=== PATIENT | male | born 1955 | race Caucasian/White ===

== ENCOUNTER 2017-02-20 14:34 | Inpatient (IN) | payer OTHER ==
--- NOTE | 2017-02-20 15:57 | CPEKG ---
Heart Rate: 57 RR Interval: 1053 P-R Interval: 204 QRSD Interval: 98 QT Interval: 404 QTC Interval: 394 P Orange: 12 QRS Orange: -23 T Wave Orange: -3 EKG Severity - ABNORMAL ECG - EKG Impression: SINUS RHYTHM EKG Impression: PROBABLE LEFT VENTRICULAR HYPERTROPHY EKG Impression: BORDERLINE T ABNORMALITIES, INFERIOR LEADS Electronically Signed By: Dulce Ocampo 20-Feb-2017 21:23:31
--- NOTE | 2017-02-20 15:58 | EDPHY ---
HPI/HX/ROS/PE/MDM Narrative: CHIEF COMPLAINT: Dizziness HISTORY OF PRESENT ILLNESS: The patient is a 61-year-old male presenting with severe dizziness. The patient flew here 3 days ago from [place]. He went for a hike with his daughter two days ago and felt fine. The following morning he woke up with dizziness. He reports a "slow spinning" sensation that has remained constant. He intermittently has a "fast spinning" sensation with associated nausea and emesis x2. He spoke to his doctor from home who prescribed Meclizine and Zofran which improved his symptoms temporarily. This morning his symptoms continued with vague dizziness, and inability to walk. He felt off balance and thought he may fall. He additionally notes a tingling sensation to his face, bilaterally. His notes the patient seems lethargic, disoriented, and slow to speak. Patient and deny any dysarthria, word- finding difficulties, facial droop, numbness or tingling in arm or leg, or headache. He denies any falls. He does not use any anticoagulants. He denies fever, chills, chest pain, shortness of breath, or palpitations. Patient currently states he has no significant spinning sensation, just continues to feel "thickheaded" and off balance. REVIEW OF SYSTEMS: Aside from elements discussed in the HPI, a comprehensive 10-point review of systems was reviewed and is negative. PAST MEDICAL HISTORY: Hypertension. Arthritis. Patient takes aspirin as well as diclofenac SOCIAL HISTORY: . Lives in [place]. Occasional alcohol use. VITAL SIGNS: Reviewed by me GENERAL: Well-developed, well-nourished, resting comfortably in no respiratory distress. HEENT: Atraumatic. Eyes: No icterus, no injection. No nystagmus. PERRL, EOMI. Ears: Small amount of dried wax against TM on the left. Mouth: moist mucous membranes. No erythema or lesions. Neck: supple with no adenopathy. LUNGS: Clear to auscultation bilaterally, no wheezes, rhonchi or rales. CARDIAC: Regular rate and rhythm, no rubs, murmurs or gallops. ABDOMEN: Soft, nontender, nondistended, bowel sounds normal. BACK: No CVA tenderness. EXTREMITIES: No trauma. No edema. Range of motion is normal throughout. NEURO: Alert and oriented x3. No confusion noted during exam; answers questions appropriately, cranial nerves II through XII are intact. Motor strength 5 over 5 in all major muscle groups. Sensation intact to light touch. Normal finger to nose. Normal heel to dumont bilaterally. SKIN: Warm and dry, no rash. PSYCHIATRIC: Normal mentation, no agitation. Portions of this note were transcribed by a biomedical technician. I personally performed a history, physical exam, medical decision making, and confirmed accuracy of information the transcribed note. ED Course: Patient with history of hypertension presents with acute dizziness. Patient reports a spinning sensation. He tried taking Meclizine which improved his symptoms of severe dizziness/ spinning as well as vomiting. This morning symptoms persisted with feeling off balance, slight dizziness, "thick headed", and tingling sensation to his face bilaterally. IV was established. Plan for blood work, labs, and CT head. 12-LEAD EKG: Please see the full report in [facility]. My interpretation: Sinus rhythm, Borderline T abnormalities. Rate 57. Blood work is unremarkable. CT head is ordered. CT imaging was called to me by the radiologist, normal head CT. Subsequent left nasal mass found. I discussed this with the patient. He will followup with ENT when he returns home. 5:30 p.m.: Aft IV fluids, patient was reexamined. Upon sitting he complains of feeling woozy and when walking he reports feeling off balance. No fall. Patient required assistance with ambulation. No nystagmus. Plan to order CT Angio head and neck. Patient received a small amount of Ativan. CT Angio head and neck are normal. I spoke to Dr. Stoll, Neurology. We discussed MRI imaging in the emergency department. Dr. Stoll recommends admission to the hospital for symptomatic treatment with an examination in the morning and MRI studies with without contrast tomorrow. He will be seen by Neurology at that time. 8:00 p.m.: I spoke to the hospitalist, Dr. Cuenca, who accepts the patient for admission. Patient is comfortable with the plan. The understand that he will be seen by Neurology in the morning with further imaging studies as needed at that time. MDM: Differential diagnosis of the patient's dizziness was considered including but not limited to peripheral and central causes of vertigo, cardiac arrhythmias, cardiac ischemia, electrolyte disturbances, neurologic causes, cerebellar infarct, vertebral artery dissection, vertebral artery occlusion, orthostatic causes including dehydration, and blood loss. - Data Points Imaging Results: Imaging Impressions Head CT 02/20/17 17:01 Impression:1. Negative brain. Consider CT angiography and/or MRI of the brain. 2. Left nasopharynx mass. Results discussed with Dr. Ocampo. General information for patients regarding this examination can be found at [email or web address]. If you have questions or comments about this report, please contact me at [phone] (hospital) or [phone] (cell). Head CTA 02/20/17 17:42 Impression: Negative CT angiography of the neck with no arterial occlusive disease identified. CT Angiography of the Head With Attention to the [place] Reason for examination: Vertigo and altered mental status; evaluate for arterial occlusive disease. Follow-up nasopharyngeal mass. Technique: A spiral acquisition was performed from the base of the brain to the vertex during rapid intravenous administration of 90 mL of Isovue-370. This contrast volume was utilized for evaluation of the neck and head. Axial images are obtained at 0.6 mm thickness and the examination is reviewed on the workstation in multiple window and level settings. Sagittal and coronal reformats are performed and three-dimensional reformations are performed by the radiologist on the workstation. Dose reduction techniques were utilized. Findings: There is excellent arterial opacification. The great vessels at the base of the brain are normal in appearance. The anterior and middle cerebral arteries appear normal. Incidentally, there is a hypoplastic left A1 segment. Both anterior cerebrals fill from the right side. The [place] is intact with both anterior and posterior communicating arteries identified. The basilar artery as well as posterior cerebral arteries are normal. No regions of stenosis are identified. No hemorrhages are seen and no vascular malformations are identified. No areas of abnormal perfusion are identified and there are no findings to suggest cortical ischemia. Again noted is a tubular well-defined sausagelike mass in the left posterior nasopharynx extending into the upper portion of the oropharynx. This demonstrates minimal if any contrast enhancement. Impression: 1. Normal CT angiography of the head with attention to the great vessels of the [place]. 2. Nasopharyngeal mass previously described demonstrates minimal if any contrast enhancement. No associated osseous erosive changes are identified. Results called and discussed with Dulce Ocampo MD on 02/20/2017 at 18:38 Note: All stenoses are calculated using NASCET Criteria. Neck CTA 02/20/17 17:42 Impression: Negative CT angiography of the neck with no arterial occlusive disease identified. CT Angiography of the Head With Attention to the [place] Reason for examination: Vertigo and altered mental status; evaluate for arterial occlusive disease. Follow-up nasopharyngeal mass. Technique: A spiral acquisition was performed from the base of the brain to the vertex during rapid intravenous administration of 90 mL of Isovue-370. This contrast volume was utilized for evaluation of the neck and head. Axial images are obtained at 0.6 mm thickness and the examination is reviewed on the workstation in multiple window and level settings. Sagittal and coronal reformats are performed and three-dimensional reformations are performed by the radiologist on the workstation. Dose reduction techniques were utilized. Findings: There is excellent arterial opacification. The great vessels at the base of the brain are normal in appearance. The anterior and middle cerebral arteries appear normal. Incidentally, there is a hypoplastic left A1 segment. Both anterior cerebrals fill from the right side. The [place] is intact with both anterior and posterior communicating arteries identified. The basilar artery as well as posterior cerebral arteries are normal. No regions of stenosis are identified. No hemorrhages are seen and no vascular malformations are identified. No areas of abnormal perfusion are identified and there are no findings to suggest cortical ischemia. Again noted is a tubular well-defined sausagelike mass in the left posterior nasopharynx extending into the upper portion of the oropharynx. This demonstrates minimal if any contrast enhancement. Impression: 1. Normal CT angiography of the head with attention to the great vessels of the [place]. 2. Nasopharyngeal mass previously described demonstrates minimal if any contrast enhancement. No associated osseous erosive changes are identified. Results called and discussed with Dulce Ocampo MD on 02/20/2017 at 18:38 Note: All stenoses are calculated using NASCET Criteria. Imaging: Discussed imaging studies w/ planning advisor Radiologist Laboratory Results: Laboratory Results 02/20/17 16:20 02/20/17 16:20 02/20/17 02/20/17 16:20 16:20 WBC 5.11 10^3/uL 10^3/uL (3.80-9.50) RBC 4.02 10^6/uL L 10^6/uL (4.40-6.38) Hgb 12.3 g/dL L g/dL (13.7-17.5) Hct 36.6 % L % (40.0-51.0) MCV 91.0 fL fL (81.5-99.8) MCH 30.6 pg pg (27.9-34.1) MCHC 33.6 g/dL g/dL (32.4-36.7) RDW 13.0 % % (11.5-15.2) Plt Count 148 10^3/uL L 10^3/uL (150-400) MPV 11.7 fL fL (8.7-11.7) Neut % (Auto) 52.8 % % (39.3-74.2) Lymph % (Auto) 32.7 % % (15.0-45.0) [place] % (Auto) 9.2 % % (4.5-13.0) Eos % (Auto) 4.1 % % (0.6-7.6) Baso % (Auto) 0.8 % % (0.3-1.7) Nucleat RBC Rel Count 0.0 % % (0.0-0.2) Absolute Neuts (auto) 2.70 10^3/uL 10^3/uL (1.70-6.50) Absolute Lymphs (auto) 1.67 10^3/uL 10^3/uL (1.00-3.00) Absolute Monos (auto) 0.47 10^3/uL 10^3/uL (0.30-0.80) Absolute Eos (auto) 0.21 10^3/uL 10^3/uL (0.03-0.40) Absolute Basos (auto) 0.04 10^3/uL 10^3/uL (0.02-0.10) Absolute Nucleated RBC 0.00 10^3/uL 10^3/uL (0-0.01) Immature Gran % 0.4 % % (0.0-1.1) Immature Gran # 0.02 10^3/uL 10^3/uL (0.00-0.10) Sodium 139 mEq/L mEq/L (134-144) Potassium 4.0 mEq/L mEq/L (3.5-5.2) Chloride 109 mEq/L mEq/L (97-110) Carbon Dioxide 18 mEq/l L mEq/l (22-31) Anion Gap 12 mEq/L mEq/L (8-16) BUN 15 mg/dL mg/dL (7-23) Creatinine 1.2 mg/dL mg/dL (0.7-1.3) Estimated GFR > 60 Glucose 92 mg/dL mg/dL (70-100) Calcium 9.3 mg/dL mg/dL (8.5-10.4) Troponin I < 0.012 ng/mL ng/mL (0-0.034) Lipase 235.0 IU/L IU/L (23-300) Salicylates < 1.0 mg/dL L mg/dL (2.0-20.0) Medications Given: Discontinued Medications Sodium Chloride (Ns) 1,000 mls @ 0 mls/hr IV ONCE ONE; Wide Open PRN Reason: Protocol Stop: 02/20/17 16:13 Last Admin: 02/20/17 16:30 Dose: 1,000 mls Lorazepam (Ativan) 1 mg PO EDNOW ONE Stop: 02/20/17 18:54 Last Admin: 02/20/17 19:08 Dose: 1 mg General Time Seen by Provider: 02/20/17 15:50 Initial Vital Signs: Initial Vital Signs Temperature (C) 36.3 C 02/20/17 14:40 Heart Rate 64 02/20/17 14:40 Respiratory Rate 18 02/20/17 14:40 Blood Pressure 137/89 H 02/20/17 14:40 O2 Sat (%) 95 02/20/17 14:40 O2 Delivery Mode Room Air O2 (L/minute) 1 Allergies/Adverse Reactions: No Known Allergies Allergy (Verified 02/22/17 03:02) Home Medications: Medication Instructions Recorded Aspirin EC [Aspirin EC 81 mg (*)] 81 mg PO DAILY 02/20/17 Diclofenac Sodium [Voltaren 75 MG 75 mg PO QID PRN 02/20/17 (*)] Meclizine HCl 25 mg PO QID PRN 02/20/17 Olmesartan Medoxomil [Benicar 20 20 mg PO DAILY 02/20/17 mg (*)] Ondansetron [Ondansetron Odt] 4 mg PO QID PRN 02/20/17 Departure - Departure Disposition: [facility] Clinical Impression: Ataxia, Dizziness, r/o cerebellar stroke Condition: Fair Report Scribed for: Dulce Ocampo Report Scribed by: Jessica Ford Date of Report: 02/20/17 Time of Report: 16:07
[2017-02-20] MEDS ORDERED: NS 1,000 ML IV ONE (16:12)
[2017-02-20 16:26] LABS: % IMMATURE GRANULYOCYTES 0.4 % (0.0-1.1); ABSOLUTE IMMATURE GRANULOCYTES 0.02 10^3/uL (0.00-0.10); ADD DIFF? NO; ADD MORPH? NO; ADD SCAN? NO; ATYPICAL LYMPHOCYTE FLAG 10 (0-99); FRAGMENT RBC FLAG 0 (0-99); HEMATOCRIT 36.6 % (40.0-51.0); HEMOGLOBIN 12.3 g/dL (13.7-17.5); LEFT SHIFT FLG 0 (0-99); LIPEMIA HEMOLYSIS FLAG 80 (0-99); MEAN CELL HEMOGLOBIN 30.6 pg (27.9-34.1); MEAN CELL HEMOGLOBIN CONCENTR. 33.6 g/dL (32.4-36.7); MEAN PLATELET VOLUME 11.7 fL (8.7-11.7); PLATELET CLUMPS FLAG 50 (0-99); PLATELET COUNT 148 10^3/uL (150-400); RED BLOOD CELL COUNT 4.02 10^6/uL (4.40-6.38)
[2017-02-20 16:43] LABS: ANION GAP 12 mEq/L (8-16); CALCIUM 9.3 mg/dL (8.5-10.4); CARBON DIOXIDE 18 mEq/l (22-31); CHLORIDE 109 mEq/L (97-110); CREATININE 1.2 mg/dL (0.7-1.3); GLOMERULAR FILTRATION RATE > 60; GLUCOSE 92 mg/dL (70-100); SALICYLATE < 1.0 mg/dL (2.0-20.0); SODIUM 139 mEq/L (134-144)
[2017-02-20 16:55] LABS: TROPONIN I < 0.012 ng/mL (0-0.034)
[2017-02-20] MEDS ORDERED: IOPAMIDOL (ISOVUE 370) 100 ML BTL IV ONE (17:55)
[2017-02-20] MEDS ORDERED: LORazepam 1 MG TAB PO ONE (18:53)
[2017-02-20] MEDS ORDERED: MECLIZINE HCL 25 MG TAB PO PRN (22:34)
[2017-02-20] MEDS ORDERED: ONDANSETRON 4MG PREPACK#2 BTL TAKEHOME PRN (22:34)
[2017-02-20] MEDS ORDERED: PROMETHAZINE HCL 25 MG/ML INJ IVP PRN (22:35)
[2017-02-20] MEDS ORDERED: ONDANSETRON 4 MG/2 ML VIAL IVP PRN (22:35)
[2017-02-20] MEDS ORDERED: ONDANSETRON DISINTEGRATING 4 MG TAB PO PRN (22:39)
--- NOTE | 2017-02-21 02:48 | GHP ---
[f rep st] HISTORY AND PHYSICAL DATE OF ADMISSION: 02/20/2017 CHIEF COMPLAINT: Vertigo. HISTORY: The patient is a 61-year-old male visiting from [place]. He flew in 3 days ago and rachele curtis felt well. They went for a 4-5 hour hike, and he felt fine. He now presents with 2 days of sev ere dizziness that started first thing Sunday morning when he woke up. He contacted his physician glo Mandujano, who prescribed meclizine and Zofran, but symptoms are progressive. He has poor balance a nd has some nausea and vomiting. He feels this is vertigo consistent with the room spinning. He de nies any sinus congestion or pain. The symptoms get much worse when he tries to get up, although do es not have any worse symptoms moving his head about while lying in bed. He also describes tingling in his bilateral face and in his legs. He says this feels like when he had "the bends" when he was in [place]. PAST MEDICAL HISTORY: Hypertension. PAST SURGICAL HISTORY: Hernia repair, bilateral rotator cuff surgery, bilateral total knee arthropl asty. MEDICATIONS: Please see computer record for full detailed list. ALLERGIES: No known drug allergies. SOCIAL HISTORY: No smoking. Social alcohol. 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 [employer] in [place]. They are visiting [place] because his daughter is a student at [employer]. He an d his are currently stent staying in an Airbnb. They had intended to fly out on . REVIEW OF SYSTEMS: Complete review of systems obtained. Review of systems is negative regarding co nstitutional, HEENT, GI, pulmonary, cardiovascular, , hematology, skin, muscular, endocrine, psych , except for positives and negatives as noted in HPI. FAMILY HISTORY: Mother of cancer of her female organs. Father of dementia at age 87. PHYSICAL EXAMINATION: GENERAL: Well-developed, well-nourished male, in no acute distress. VITAL S IGNS: Temperature is 36.5, pulse 54, blood pressure 124/80, saturating 95% on room air. EYES: Nor mal conjunctivae. Pupils are equal, round, reactive to light. ENT: Normal ears and nose. Hearing intact. Normal lips and teeth. Oropharynx moist. NECK: Trachea midline. No thyromegaly. CHEST : Normal respiratory effort. LUNGS: Clear to auscultation bilaterally. CARDIOVASCULAR: Regular rate and rhythm. No murmur. No lower extremity edema. ABDOMEN: Soft. Nontender. No hepatosplen omegaly. SKIN: Warm, dry, intact. No rash. MUSCULOSKELETAL: No cyanosis or clubbing. Strength 5/5 upper and lower extremities. NEUROLOGIC: Cranial nerves intact. Normal sensation to light anna ch. PSYCH: Alert and oriented x3. Normal mood and affect. Normal judgment. Normal insight. Nor mal memory. LABORATORY DATA: White count is 5.11, hematocrit 36.6, platelets 148. Sodium 139, potassium 4.0, c hloride 109, bicarb 18, BUN 15, creatinine 1.2. Glucose 92. Troponin is negative. Aspirin is nega tive. EKG viewed by me. My personal interpretation is normal sinus rhythm. No ST-T wave changes. Head CT is negative, although it does show a significant left nasopharyngeal mass. ASSESSMENT AND PLAN: 1. Vertigo. Differential diagnosis is dehydration versus peripheral vertigo due to benign position al vertigo or labyrinthitis versus central vertigo versus contribution of the ENT tumor. Neurology has been consulted by the emergency room, and they recommended MRI brain in the morning. Will hydra te with IV fluids and get PT/OT in the morning. Could consider inpatient ENT consultation of his sy mptoms persist prohibiting discharge. 2. Nasopharyngeal mass. As discussed above, inpatient versus outpatient ENT consultation depending on clinical course. 3. Hypertension. Continue Benicar. CODE STATUS: Full. ADMISSION STATUS: Will admit to observation and reassess tomorrow regarding improvement. DEEP VEIN THROMBOSIS PROPHYLAXIS: He is low risk. Will hold off on pharmacologic prophylaxis at th is time. /[id number]/MODL
[2017-02-21] MEDS: NS 1,000 ML IV SCH ×2 (04:55→08:11)
[2017-02-21 05:12] LABS: % IMMATURE GRANULYOCYTES 0.4 % (0.0-1.1); ABSOLUTE IMMATURE GRANULOCYTES 0.02 10^3/uL (0.00-0.10); ADD DIFF? NO; ADD MORPH? NO; ADD SCAN? NO; ATYPICAL LYMPHOCYTE FLAG 0 (0-99); FRAGMENT RBC FLAG 0 (0-99); HEMATOCRIT 37.3 % (40.0-51.0); HEMOGLOBIN 12.4 g/dL (13.7-17.5); LEFT SHIFT FLG 0 (0-99); LIPEMIA HEMOLYSIS FLAG 80 (0-99); MEAN CELL HEMOGLOBIN 30.5 pg (27.9-34.1); MEAN CELL HEMOGLOBIN CONCENTR. 33.2 g/dL (32.4-36.7); MEAN CELL VOLUME 91.6 fL (81.5-99.8); MEAN PLATELET VOLUME 11.6 fL (8.7-11.7); PLATELET CLUMPS FLAG 0 (0-99); PLATELET COUNT 144 10^3/uL (150-400); RED BLOOD CELL COUNT 4.07 10^6/uL (4.40-6.38); RED CELL DISTRIBUTION WIDTH 13.1 % (11.5-15.2)
[2017-02-21 05:28] LABS: CALCIUM 9.1 mg/dL (8.5-10.4); CARBON DIOXIDE 18 mEq/l (22-31); CHLORIDE 112 mEq/L (97-110); CREATININE 1.1 mg/dL (0.7-1.3); GLOMERULAR FILTRATION RATE > 60; GLUCOSE 104 mg/dL (70-100); SODIUM 141 mEq/L (134-144)
[2017-02-21 05:43] LABS: ANION GAP 11 mEq/L (8-16)
[2017-02-21] MEDS: OLMESARTAN MEDOXOMIL 20 MG TAB PO SCH (08:12)
--- NOTE | 2017-02-21 08:55 | CPEKG ---
Heart Rate: 47 RR Interval: 1277 P-R Interval: 200 QRSD Interval: 98 QT Interval: 440 QTC Interval: 389 P [place]: 13 QRS [place]: -9 T Wave [place]: 5 EKG Severity - OTHERWISE NORMAL ECG - EKG Impression: SINUS BRADYCARDIA Electronically Signed By: Bijan Johnson 21-Feb-2017 12:01:35
[2017-02-21] MEDS ORDERED: GADOBUTROL 10 ML VIAL IVP ONE (09:52)
--- NOTE | 2017-02-21 10:22 | HOSPPROG ---
Hospitalist Progress Note Assessment/Plan: Patient is a 61-year-old male who came to the emergency room with complaints of vertigo. He is originally from [place] and is here visiting the [place] area. Today is my 1st encounter with the patient. Chart reviewed. Discussed his care with Dr Stoll. *stroke/cerebellar likely causing the below symptoms check lipid panel/ A1c echo bp stable telemetry monitoring ordered has a grandfather who had a stroke Plavix instead of asa therapies ordered * vertigo he has been having symptoms since Sunday this is better, but now having double vision * nasopharyngeal mass this is noted on the CT scan spoke with ENT/ Dr Terrell, he will see later today * hypertension Benicar/will allow for permissive htn in setting of stroke *Plan: he needs further evaluation by Dr Terrell, needs an echo, and telemetry monitoring for 24 hours. He will require another midnight stay for further evaluation. Needs evaluation by therapies. Is too dizzy for dc. Subjective: Bill is c/o double vision/ able to eat and drink/ still is dizzy. Objective: Vital Signs Temp Pulse Resp BP Pulse Ox 36.6 C 49 L 12 135/85 H 97 02/21/17 07:51 02/21/17 07:51 02/21/17 07:51 02/21/17 08:12 02/21/17 07:51 Laboratory Results 02/21/17 05:05 02/21/17 05:05 02/20/17 02/21/17 02/22/17 05:59 05:59 05:59 Intake Total 1020 Balance 1020 - Physical Exam Constitutional: appears nourished Eyes: PERRL, No other (no nystagmus) Ears, Nose, Mouth, Throat: moist mucous membranes, hearing normal Cardiovascular: regular rate and rhythym, no murmur, rub, or gallop Respiratory: no respiratory distress Gastrointestinal: normoactive bowel sounds Skin: warm, normal color Musculoskeletal: full muscle strength Neurologic: AAOx3, CN II-XII Intact, No weakness, No numbness, No pronator drift , No facial droop Psychiatric: interacting appropriately, not anxious ICD10 Worksheet Patient Problems: Problems Problem Status Onset Vertigo Acute
[2017-02-21 12:03] LABS: CHOLESTEROL 224 mg/dL (140-220); HIGH DENSITY LIPOPROTEIN 28 mg/dL (40-65); LDL/HDL RATIO 4.43 RATIO (1.00-3.64); LOW DENSITY LIPOPROTEIN 124 mg/dL (80-100); NON-HIGH DENSITY LIPOPROTEIN 196 mg/dL (90-129); TRIGLYCERIDE 362 mg/dL (40-150); VERY LOW DENSITY LIPOPROTEINS 72 mg/dL (8-25)
[2017-02-21] MEDS: ACETAMINOPHEN 325 MG TAB PO PRN ×3 (12:13→20:30)
[2017-02-21] MEDS ORDERED: ASPIRIN 325 MG TAB PO SCH (13:15)
[2017-02-21] MEDS ORDERED: NS 1,000 ML IV SCH (13:30)
[2017-02-21 13:55] LABS: HEMOGLOBIN A1C 5.2 % (4.0-6.0)
--- NOTE | 2017-02-21 14:37 | NEUROPROG ---
Assessment: [id number] CC: Dr. Floyd Cuenca consulted neurology for a new stroke. Results placed in the EMR for his review. HPI: This 61M patient was initially seen 02/21/17. He was visiting from [place] and was in good health with no neurologic problems. He took a daily baby aspirin for general health. He noted he awoke on 02/19/17 with a sense of vertigo, double vision, and gait problems. He has also had tingling in his legs and face. He came to the [facility] ER on 02/20/17 and was admitted for further evaluation of his symptoms. A brain MRI showed a new right cerebellar stroke as well as a cystic mass in his sinuses. He denied history of prior stroke, afib, or other neurologic problems. PMHx: HTN PSHx: hernia, B/L shoulder, B/L knee SHx: no tobacco FHx: cancer, dementia ROS: Pt denied acute fever, total vision loss, active severe chest pain, respiratory failure, total body severe rash, total bowel/bladder incontinence, psychosis, active seizures, or active bleeding O: VS bp 133/78 P51L RR 10L Satting 96% RA Temp 36.6C General: Alert Eyes: Fundoscopic exam not able to visualize optic disks CV: Heart RRR, no murmur, no carotid bruit Lungs: Clear to auscultation bilaterally, no rhonci or rales Neuro: - Mental: . Oriented x person/place/date . concentration appears normal . speech fluency/comprehension normal . memory appears normal . fund of knowledge appear intact - Cranial Nerves: . II: PERRL, VFFTC . III/IV/: EOMI but he has diplopia so has his right eye covered, no nystagmus, normal smooth pursuits, no Ptosis . V: facial sensation intact to LT . VII: face symmetric to eye closure and smile . VIII: hearing intact to conversation . IX/X: uvula raises symmetrically . XI: SCM 5/5 B/L strength . XII: tongue protrudes midline w/nl strength - Motor: . Tone: normal tone in all 4 extrem . Strength: no pronator drift, strength 5/5 throughout (B/L delt, bic, tri, hand production support developer, hf/he, df/pf) - Reflexes: B/L bic/BR/patella 2/4 - Sensory: all 4 extrem intact to light touch - Coord: right hand shows ataxia with fine motor movement, right leg/truncal ataxia - Gait: he requires help due to truncal ataxia - NIH SS: 2 (ataxia in right arm and right leg Labs: 02/21/17- CBC Hct 37.3L Plt 144L, Chem Cl 112H CO2 18L GLuc 104H, H1AC pending, LDL 124 Rads: 02/20/17- CTA head/neck: no vessel abnormality noted 02/21/17- Brain MRI w/ and w/o con:right cerebellar stroke PICA territory, left posterior nasopharyngeal non enhancing cystic mass (ENT consult recommended) Assessment: 1. Right PICA distribution Cerebellar Stroke causing vertigo/gait issues and diplopia: CTA head/neck on 02/20/17 unremarkable. Brain MRI w/ and w/o con on showed R PICA area cerebellar stroke. Neurologic exam on 02/21/17 showed right arm ataxia, truncal ataxia, and diplopia. LDL 124. Stroke occurred on aspirin 81mg qd. 2. Nasopharyngeal Mass 3. HTN Plan: - Recommend ENT consult given presence of nasopharyngeal mass - Change ASA 81mg qd to Plavix 75mg qd (Pt had stroke on aspirin) - Blood pressure goal < 140/90 (no permissive HTN as stroke occurred > 48 hours ago) - LDL goal < 70 (LDL 124), recommend beginning statin - H1AC < 7.0 (H1aC pending) - DVT prophy per hospitalist - PT/OT consult recommended - TTE pending - 24 hour telemetry pending Neurology will continue to follow closely Objective: Vital Signs Temp Pulse Resp BP Pulse Ox 36.6 C 51 L 10 L 133/78 H 94 02/21/17 11:59 02/21/17 11:59 02/21/17 11:59 02/21/17 11:59 02/21/17 12:35 Laboratory Results 02/21/17 05:05 02/21/17 05:05 02/20/17 02/21/17 02/22/17 05:59 05:59 05:59 Intake Total 1020 Balance 1020 Allergies/Adverse Reactions: No Known Allergies Allergy (Unverified 02/20/17 14:39)
--- NOTE | 2017-02-21 15:13 | ECHO ---
[id number] + + [address] : : [place] [address] : : [phone] + + Adult Echocardiographic Report + -----+ :Name: YANET NINO NStudy Date: 02/21/2017 02:14 PM : : Hospital Admission Number: [id number] Location : 362: :: 1955 Gender: Male Height: 70 in : :Age: 61 yrs Race: WH Weight: 225 lb : :Reason For Study: Ischemic stroke : : BSA: 2.2 meters2 : + -----+ MMode/2D Measurements \T\ Calculations IVSd: 1.00 cm LVIDd: 5.4 cm FS: 43.1 % Ao root diam: LVPWd: 1.1 cm LVIDs: 3.1 cm EDV(Teich): 3.6 cm 141.8 ml LA dimension: ESV(Teich): 4.2 cm 37.2 ml EF(Teich): 73.7 % LVLd ap4: 8.8 cm SV(MOD-sp4): EDV(MOD-sp4): 68.0 ml 106.0 ml LVLs ap4: 7.6 cm ESV(MOD-sp4): 38.0 ml EF(MOD-sp4): 64.2 % Normal Measurement Values: + + :LVIDd (3.5-5.7cm) IVSd (0.6-1.1cm) LVPWd (0.6-1.1cm) Aortic Root (2.0-3.7cm)Left Atrium (1.5-4.0cm): :LV Vol(d) (76-115ml) LV Vol(s) (29-48ml) Ejec Fraction (50-65%)PV Brendan (0.6- 1.2m/s) TV Brendan (0.4-1.0m/s) : :MV E Brendan (0.8-1.0m/s)MV A Brendan (0.3-1.0m/s)LVOT Brendan (0.7-1.2m/s) Asc Ao Brendan ( 0.9-1.8m/s) : + + Doppler Measurements \T\ Calculations MV E max brendan: 76.5 cm/sec Ao V2 max: 145.2 cm/sec MV A max brendan: 73.5 cm/sec Ao max P.4 mmHg MV E/A: 1.0 Left Ventricle The left ventricle is normal in size. There is normal left ventricular wall thickness. The left ventricle is hyperdynamic. Ejection Fraction = 70-75%. No regional wall motion abnormalities noted. Right Ventricle The right ventricle is normal in size and function. Atria The left atrium is mildly dilated. The right atrium is mildly dilated. Injection of contrast documented an interatrial shunt. PFO vs. ASD. Mitral Valve The mitral valve is normal in structure and function. There is no evidence of mitral valve prolapse. There is no mitral valve stenosis. Tricuspid Valve Normal tricuspid valve. Aortic Valve The aortic valve is trileaflet. The aortic valve opens well. Mildy calcified NCC of the aortic valve. There is no aortic stenosis. There is no aortic insufficiency. Pulmonic Valve The pulmonic valve is normal in structure and function. There is no pulmonic valvular regurgitation. Great Vessels The aortic root is normal size. Pericardium/Pleural There is no pericardial effusion. Conclusion A complete two-dimensional transthoracic echocardiogram was performed (2D, M-mode, Doppler and color flow Doppler). The left ventricle is hyperdynamic. Ejection Fraction = 70-75%. The left atrium is mildly dilated. The right atrium is mildly dilated. Injection of contrast documented an interatrial shunt. PFO vs. ASD. Mildy calcified NCC of the aortic valve. No clear source of embolism identified by this study. Final Reading Physician: Bob Garrido signed on 02/21/2017 03:11 PM Ordering Physician: Naida Tom Performed By: Yue Syed, [employer]
[2017-02-21] MEDS: CLOPIDOGREL BISULFATE 75 MG TAB PO SCH (15:46)
[2017-02-21] MEDS: ATORVASTATIN CALCIUM 20 MG TAB PO SCH (15:47)
[2017-02-21 16:40] LABS: BILIRUBIN,TOTAL 0.7 mg/dL (0.1-1.4); BILIRUBIN-CONJUGATED 0.5 mg/dL (0.0-0.5); BILIRUBIN-UNCONJUGATED 0.2 mg/dL (0.0-1.1); TOTAL PROTEIN 6.4 g/dL (6.3-8.2)
--- NOTE | 2017-02-21 20:50 | GCON ---
[f rep st] CONSULTATION HISTORY OF PRESENT ILLNESS: Patient is a 61-year-old gentleman who presented to the emergency room on February 20 (while visiting here from [place]) for severe dizziness that began on Sunday morning, wit h associated nausea and vomiting, as well as tingling in his face and legs. He was just diagnosed w ith having a stroke. There was an incidental finding on CT angiogram of a left posterior nasopharyn geal cystic mass. He went on to have an MRI of his brain which confirmed a 2.5 cm x 1 cm non-enhanc ing lesion in his left posterior nasopharynx. Patient has sleep apnea but no other nasal concerns. ALLERGIES: No known drug allergies. PAST MEDICAL HISTORY: Significant for hypertension. PAST SURGICAL HISTORY: Hernia repair. Bilateral rotator cuff surgery. Bilateral total knee arthro plasty. MEDICATIONS: Reviewed. SOCIAL HISTORY: No smoking. Social alcohol. FAMILY HISTORY: Noncontributory. PHYSICAL EXAMINATION: CONSTITUTIONAL: Patient is alert and oriented, in no acute distress. HEENT: HEAD atraumatic, normocephalic. Ears clear. Nose clear. Oral cavity and pharynx clear. NECK: Supple. Fiberoptic nasopharyngoscopy was performed at bedside. 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 On the right, he has a small polyp from his right middle maxillary meatu s. No other polyps are appreciated. The right side of nasopharynx is clear. 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 I discussed that this is likely to have been present for quite some time. This is not an urgent matter, and when he returns home to [place] next week, he should make an appointment with an ENT for surgical removal of this polyp. Thank you for allowing us to participate in his care. /[id number]/MODL
[2017-02-21] MEDS: oxyCODONE IR 5 MG TAB PO PRN (22:23)
[2017-02-22] MEDS: ACETAMINOPHEN 325 MG TAB PO PRN ×4 (05:01→22:56)
[2017-02-22 05:22] LABS: CHOLESTEROL 197 mg/dL (140-220); HIGH DENSITY LIPOPROTEIN 27 mg/dL (40-65); LDL/HDL RATIO 4.04 RATIO (1.00-3.64); LOW DENSITY LIPOPROTEIN 109 mg/dL (80-100); NON-HIGH DENSITY LIPOPROTEIN 170 mg/dL (90-129); TRIGLYCERIDE 305 mg/dL (40-150); VERY LOW DENSITY LIPOPROTEINS 61 mg/dL (8-25)
[2017-02-22] MEDS: ENOXAPARIN 40 MG/0.4 ML SYR SC SCH (08:09)
[2017-02-22] MEDS: ATORVASTATIN CALCIUM 20 MG TAB PO SCH (08:10)
[2017-02-22] MEDS: OLMESARTAN MEDOXOMIL 20 MG TAB PO SCH (08:10)
[2017-02-22] MEDS: CLOPIDOGREL BISULFATE 75 MG TAB PO SCH (08:10)
--- NOTE | 2017-02-22 13:43 | HOSPPROG ---
Hospitalist Progress Note Assessment/Plan: Patient is a 61-year-old male who came to the emergency room with complaints of vertigo. He is originally from [place] and is here visiting the [place] area. Today is my 1st encounter with the patient. Chart reviewed. Discussed his care with RN/CM. *stroke/right cerebellar likely causing the below symptoms LDL 124 start lipitor echo with PFO/ASD bp stable telemetry monitoring stable has a grandfather who had a stroke Plavix instead of asa therapies ordered HA1c 5.2 * vertigo he has been having symptoms since Sunday this is better, diplopia resolved * nasopharyngeal mass this is noted on the CT scan appreciate ENT consult follow up at home in [place] * hypertension Benicar/stable goal SBP <140 *Plan: PT/OT eval consider INPT rehab await eval Subjective: Feeling well. Up in chair. No pain. Objective: Vital Signs Temp Pulse Resp BP Pulse Ox 36.8 C 58 L 15 133/83 H 94 02/22/17 12:00 02/22/17 12:00 02/22/17 12:00 02/22/17 12:00 02/22/17 12:00 02/21/17 02/22/17 02/23/17 05:59 05:59 05:59 Intake Total 965 Balance 965 - Physical Exam Constitutional: no apparent distress, appears nourished, not in pain Eyes: PERRL, anicteric sclera, EOMI Ears, Nose, Mouth, Throat: moist mucous membranes, hearing normal, ears appear normal Cardiovascular: No JVD, No tachycardia, No edema Respiratory: no respiratory distress, no rales or rhonchi, reduced air movement Gastrointestinal: No tenderness, No ascites, No guarding Skin: warm, normal color, No erythema Musculoskeletal: no joint effusions, abnormal gait, generalized weakness Neurologic: AAOx3 Psychiatric: not anxious, not encephalopathic, thought process linear ICD10 Worksheet Patient Problems: Problems Problem Status Onset Ataxia Acute Dizziness Acute
--- NOTE | 2017-02-22 15:39 | NEUROPROG ---
Assessment: [id number] CC: F/U Stroke Narrative Summary: This male patient was initially seen 02/21/17. He was visiting from [place] and was in good health with no neurologic problems. He took a daily baby aspirin for general health. He noted he awoke on 02/19/17 with a sense of vertigo, double vision, and gait problems. He has also had tingling in his legs and face. He came to the [facility] ER on 02/20/17 and was admitted for further evaluation of his symptoms. A brain MRI showed a new right cerebellar stroke as well as a cystic mass in his sinuses. He denied history of prior stroke, afib, or other neurologic problems. HPI: F/U on 02/22/17. TTE showed PFO possibly so cardiology consulted. Pt said cards did not feel it was a significant problem so no additional therapy needed. ENT saw patient and felt cystic lesion was not urgent so recommended routine f/u with ENT back home in [place]. Pt feels much better today with improved diplopia and better balance. PMHx: HTN PSHx: hernia, B/L shoulder, B/L knee SHx: no tobacco FHx: cancer, dementia O: 02/21/17- NIH SS: 2 (ataxia in right arm and right leg) Labs: 02/21/17- CBC Hct 37.3L Plt 144L, Chem Cl 112H CO2 18L GLuc 104H, H1AC 5.2, LDL 124 Rads: 02/20/17- CTA head/neck: no vessel abnormality noted 02/21/17- Brain MRI w/ and w/o con:right cerebellar stroke PICA territory, left posterior nasopharyngeal non enhancing cystic mass (ENT consult recommended) 02/21/17- TTE: EF 70-75%, injection constrast of of an intraterial shunt (PFO vs ASD), no clear source of embolism found 02/22/17- 24 hour telemetry: no afib seen Assessment: 1. Right PICA distribution Cerebellar Stroke causing vertigo/gait issues and diplopia: CTA head/neck on 02/20/17 unremarkable, TTE 02/21/17 showed PFO but cards felt no additional therapy needed, 02/22/17 24 telemetry showed no afib. Brain MRI w/ and w/o con on 02/21/17 showed R PICA area cerebellar stroke. Neurologic exam on 02/21/17 showed right arm ataxia, truncal ataxia, and diplopia. LDL 124 on 02/21/17 so statin started and H1AC unremarkable. Stroke occurred on aspirin 81mg qd so that was changes to Plavix 75mg qd 2. Nasopharyngeal Mass: ENT saw and felt it was non-urgent and could be evaluated in the outpatient setting routinely 3. HTN Plan: - Continue Plavix 75mg qd (Pt had stroke on aspirin) - Blood pressure goal < 140/90 - LDL goal < 70 (LDL 124), pt started on statin - H1AC < 7.0 (H1aC 5.2) - PT/OT consult recommended, consider rehab - No further inpatient neurologic w/u needed, recommend outpatient f/u with cardiology for 30 day orthopedics pediatric physician for occult afib and otpt f/u with neurologist in [place] to establish care Neurology will continue to follow closely. 35 min spent with patient and his son, majority of time spent counseling on stroke, prognosis, and treatment options. Objective: Vital Signs Temp Pulse Resp BP Pulse Ox 36.7 C 61 15 142/82 H 94 02/22/17 15:32 02/22/17 15:32 02/22/17 15:32 02/22/17 15:32 02/22/17 15:32 02/21/17 02/22/17 02/23/17 05:59 05:59 05:59 Intake Total 965 Balance 965 Allergies/Adverse Reactions: No Known Allergies Allergy (Verified 02/22/17 03:02)
--- NOTE | 2017-02-22 18:44 | GCON ---
[f rep st] CONSULTATION CARDIOVASCULAR CONSULTATION CHIEF COMPLAINT: Stroke. HISTORY OF PRESENT ILLNESS: The patient is visiting from the [facility] [place]. Has a daughter who went to the [facility] whom he was helping pack up so that she could go down to [facility]. He himself is a graduate of the [facility], but now he lives in [place] [facility]. He had been hiking the day before. At night he felt quite dizzy. The next day, he noted significant spinning and it felt like he would fall over. He felt unsafe to walk and everything continued to spin. The world was moving left to right in a slow spin. He would get a fast spin, and when the fast spin came along, he vomited. He could not walk without any help and he had significant double vision. He would get lightheaded when he changed positions. It is continuing through to today, but better than it had been. He has not had these symptoms before. He has hypertension. He has no history of diabetes, smoking, family history of early coronary disease, hyperuricemia, diabetes mellitus, or dyslipidemia. He does have a history of obesity. He has no history of atrial arrhythmias, atrial fibrillation, palpitations. Has no history of pulmonary embolic disease. No history of trauma. No history of trauma to the head, neck, or chest. He has no history of upper respiratory tract symptoms, earlier trouble with his vision or headaches, stiff neck, sore throat, rashes, arthralgias, rigors. He has not had nasal problems, significant teeth issues, trouble with sore throat, dysphagia. He has no nausea , vomiting, diarrhea, constipation. He has not had peripheral edema. He has not had shortness of breath. He has not had chest pain, chest tightness, jaw pain, arm pain, or pleuritic chest pains. Not having dysuria, frequency, or pyuria. PAST SURGICAL HISTORY: Surgical history: Status post knee surgery, shoulder surgery, bilaterally on both, and hernia repair. MEDICATIONS: Listed in the computer. ALLERGIES: None. SOCIAL HISTORY: [place], and his family moved to [place], where he grew up there and then in [place]. [place]. 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 He enjoys working with people and does a lot of people-related work. He lives with his , who is healthy. They have 4 children, the youngest of whom just graduated from . His son is a nurse who is in [place]. 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 The patient does not smoke. He does not drink and he tries to exercise. He is obese. FAMILY HISTORY: There is no family history of premature coronary disease. No history of unexplained sudden at a young age. PHYSICAL EXAMINATION: VITAL SIGNS: Blood pressure 125/85, respiratory rate 12. He is lying comfortably in hospital bed. He has a patch over one eye. He is cooperative, comfortable, afebrile. HEENT: Pupils equal and reactive. PULMONARY: Rhonchi. CARDIOVASCULAR: S1, S2. Systolic murmur at the left sternal border. No diastolic murmur. No S3, S4. No rubs. There is probably a fixed split S2, perhaps. It is a little hard to be exact about that. No jugular venous distention. His rhythm is regular. CVA: No tenderness. ABDOMEN: Soft, nontender, without masses. EXTREMITIES: No edema, inflammation , or ulceration. NEUROLOGIC: He is moving all extremities. He has the room moving and blurred vision, and I defer to the description in the neurologist's evaluation. PSYCH: No obvious anxiety or depression. SKIN: Shows age- related changes. LAB: White count 5.1, hematocrit 36, platelets 148. Sodium 139, potassium 4, chloride 109, CO2 18, BUN 15, creatinine 1.2, glucose 92. Negative troponins. Head CT was negative with the question of a nasopharyngeal mass. The patient has an echocardiographic study which shows a small PFO versus small ASD. The right ventricle is normal. The pulmonary artery pressure is not documented to be elevated. The left atrium and right atrium are both mildly dilated. The patient has not had any evidence of significant arrhythmias while he has been here. MRI of the brain has shown acute infarct in the right cerebellar hemisphere, posterior inferior cerebellar artery territory. No acute hemorrhage , hydrocephalus, or midline shift. No enhancing lesions or abnormal leptomeningeal enhancement. Left posterior nasopharyngeal nonenhancing nonspecific cystic mass. ASSESSMENT AND PLAN: 1. Acute infarction in the right cerebellar hemisphere; posterior inferior cerebral artery. 2. Room spinning. 3. Blurred vision. 4. Ataxia. 5. Obesity. 6. Hypertension. The patient has multiple risk factors for vascular disease and now has had a stroke. It is a very devastating stroke and a frightening event for this gentleman. I have talked to him and his son extensively and tried to support them as they face this. We have talked about where he might go for rehab and what his options are, and how things might progress. There are no neurologic findings or MRI or CT head findings to suggest showering of emboli as we might see with atrial fibrillation. Obviously, atrial fibrillation could have caused this isolated stroke. I have talked to Neurology and the patient is going to get a 30-day or ZedmoQ recorder, either one, and the recommendation is that it be put in in [place] when he returns home, which is going to be soon, and his own team will be following it with the doctors he sees there. The idea is we are looking for atrial fibrillation, and if we find atrial fibrillation, we want to put him on full anticoagulation. However, now that we know that he has PFO possibly, he is going to be increased from aspirin to Plavix for his blood thinning. There is no evidence that at this point in time he would benefit from closure of a PFO. The studies are quite clear that there is no statistically significant improvement with that approach. There are other indications for closure such as pulmonary hypertension, right ventricular heart failure. He does not appear to have any of those at this time. He does not even have an enlarging right ventricle, but rather a totally normal right ventricle. We are very happy to follow him with you. We can do a transesophageal echocardiogram and other studies at any time, but right now I have discussed the case with Neurology and it is our opinion together that this would not impact on his care at this time or change his medications, so we will watch him carefully on the anticoagulation that he is on right now. His prognosis is guarded. This is a very disturbing event for him. I have answered all his questions and the questions for his son. I have left messages with the two hospitalists who the nursing staff says are amongst the people taking care of him. I do not think we need to change anything right now. /[id number]/MODL MTDD
--- NOTE | 2017-02-22 19:54 | GCON ---
[f rep st] CONSULTATION CARDIOLOGY CONSULTATION /[id number]/MODL
[2017-02-23] MEDS: oxyCODONE IR 5 MG TAB PO PRN ×2 (04:24→10:33)
[2017-02-23] MEDS: ACETAMINOPHEN 325 MG TAB PO PRN ×2 (04:24→10:32)
[2017-02-23] MEDS: ATORVASTATIN CALCIUM 20 MG TAB PO SCH (09:07)
[2017-02-23] MEDS: ENOXAPARIN 40 MG/0.4 ML SYR SC SCH (09:07)
[2017-02-23] MEDS: CLOPIDOGREL BISULFATE 75 MG TAB PO SCH (09:08)
[2017-02-23] MEDS: OLMESARTAN MEDOXOMIL 20 MG TAB PO SCH (09:08)
[2017-02-23 11:54] VITALS: BP 141/84; PULSE 57; RESP 16; TEMP 98.1; O2SAT 93
--- NOTE | 2017-02-23 13:56 | PDIAF ---
- Diagnosis Diagnosis: CVA Code Status: Full Code - Medication Management Discharge Medications: Medications to Continue on Transfer Diclofenac Sodium [Voltaren 75 MG (*)] 75 mg PO QID PRN 02/20/17 [Last Taken ] Meclizine HCl 25 mg PO QID PRN 02/20/17 [Last Taken 02/20/17 14:30 2 tabs] Olmesartan Medoxomil [Benicar 20 mg (*)] 20 mg PO DAILY 02/20/17 [Last Taken ] Ondansetron [Ondansetron Odt] 4 mg PO QID PRN 02/20/17 [Last Taken 02/20/17 14: 30] Acetaminophen [Tylenol 325mg (*)] 650 mg PO Q4 PRN #0 tab 02/23/17 [Last Taken Unknown] Atorvastatin Calcium [Lipitor 20 mg (*)] 20 mg PO DAILY tab 02/23/17 [Last Taken Unknown] Clopidogrel Bisulfate [Plavix (*)] 75 mg PO DAILY tab 02/23/17 [Last Taken Unknown] Enoxaparin [Lovenox 40 MG (*)] 40 mg SC DAILY syr 02/23/17 [Last Taken Unknown] oxyCODONE IR [Oxycodone Ir (*)] 5 - 10 mg PO Q4 PRN #0 tab 02/23/17 [Last Taken Unknown] Discharge Medications: Refer to the Discharge Home Medication list for PRN reason. PICC Care - Routine: N/A - Orders Services needed: Registered Nurse, Physical Therapy, Occupational Therapy, Speech Language Pathologist Diet Recommendation: no restrictions on diet - Follow Up Care Current Providers and Referrals: ALEKSANDRA NOLAN MD [Other] - As per Instructions
--- NOTE | 2017-02-23 14:56 | GDS ---
[f rep st] DISCHARGE SUMMARY DISCHARGE DIAGNOSES: 1. Right cerebellar stroke. 2. Vertigo. 3. Nasopharyngeal mass. 4. Hypertension. 5. Possible patent foramen ovale. CONSULTATIONS: 1. Neurology. 2. Cardiology. PHYSICAL EXAM: GENERAL: The patient is alert. VITAL SIGNS: Afebrile at 36.7, pulse is 57, respir atory rate 16, blood pressure is 141/84, he is saturating 93% on room air. I have seen and evaluate d the patient on the day of discharge. HOSPITAL COURSE: Mr. Fung is a 61-year-old male who presented to the emergency room with complaints of vertigo. He was evaluated and diagnosed with: 1. Right cerebellar infarct. During this hospitalization, he received a consultation from Neurolog y. He has been initiated on Plavix as well as evaluation from physical therapy and occupational the rubina. The patient has residual symptoms secondary to his cerebellar infarct and will require contin ued inpatient rehabilitation. 2. Hypertriglyceridemia. During this hospitalization, the patient has been initiated on Lipitor. Followup laboratory evaluations will be done with his primary care physician when he returns to [facility]. 3. Vertigo. This symptom is significantly improving. It was also associated with diplopia. He wi ll continue therapy for this condition. 4. Nasopharyngeal mass. This has been noted incidentally on the patient's CT scan. Ear, Nose, and Throat consult done on the patient during this hospitalization. Recommended followup with ENT once the patient has returned to [place] where he normally resides. 5. Hypertension. Blood pressure is stable at the time of disposition with recommended blood pressu re parameters less than 140 systolic. 6. Possible PFO. Echocardiogram demonstrates possible PFO/ASD. Cardiology did consult on the leah ent's care during this hospital course. It is recommended that the patient have an implanted cardia c device to determine if incidental atrial fibrillation is occurring as well as followup with a card iologist of his choice in [place]. The patient is in agreement with this plan. DISPOSITION: Mr. Fung will be discharged to inpatient rehab for further management and therapy. Th ere are no pending studies. Followup will be extensive when the patient returns to [facility] g ENT, Cardiology, Neurology and likely Physical Therapy and Occupational Therapy as well as the earl steele's primary care physician. DISCHARGE MEDICATIONS: Please refer to EMR form. The patient has been initiated on Lipitor as well as Plavix and Lovenox during this hospitalization. I spent greater than 35 minutes in the care, coordination, and management of the patient's discharge . /[id number]/MODL
--- NOTE | 2017-02-23 16:05 | NEUROPROG ---
Assessment: [id number] CC: F/U Stroke Narrative Summary: This male patient was initially seen 02/21/17. He was visiting from [place] and was in good health with no neurologic problems. He took a daily baby aspirin for general health. He noted he awoke on 02/19/17 with a sense of vertigo, double vision, and gait problems. He has also had tingling in his legs and face. He came to the [facility] ER on 02/20/17 and was admitted for further evaluation of his symptoms. A brain MRI showed a new right cerebellar stroke as well as a cystic mass in his sinuses. He denied history of prior stroke, afib, or other neurologic problems. F/U on 02/22/17. TTE showed PFO possibly so cardiology consulted. Pt said cards did not feel it was a significant problem so no additional therapy needed. ENT saw patient and felt cystic lesion was not urgent so recommended routine f/u with ENT back home in [place]. Pt feels much better today with improved diplopia and better balance. HPI: F/U on 02/23/17. No new complaints. Pt plans to go to rehab today. He feels much better. PMHx: HTN PSHx: hernia, B/L shoulder, B/L knee SHx: no tobacco FHx: cancer, dementia O: 02/21/17- NIH SS: 2 (ataxia in right arm and right leg) Labs: 02/21/17- CBC Hct 37.3L Plt 144L, Chem Cl 112H CO2 18L GLuc 104H, H1AC 5.2, LDL 124 Rads: 02/20/17- CTA head/neck: no vessel abnormality noted 02/21/17- Brain MRI w/ and w/o con:right cerebellar stroke PICA territory, left posterior nasopharyngeal non enhancing cystic mass (ENT consult recommended) 02/21/17- TTE: EF 70-75%, injection constrast of of an intraterial shunt (PFO vs ASD), no clear source of embolism found 02/22/17- 24 hour telemetry: no afib seen Assessment: 1. Right PICA distribution Cerebellar Stroke causing vertigo/gait issues and diplopia: CTA head/neck on 02/20/17 unremarkable, TTE 02/21/17 showed PFO but cards felt no additional therapy needed, 02/22/17 24 telemetry showed no afib. Brain MRI w/ and w/o con on 02/21/17 showed R PICA area cerebellar stroke. Neurologic exam on 02/21/17 showed right arm ataxia, truncal ataxia, and diplopia. LDL 124 on 02/21/17 so statin started and H1AC unremarkable. Stroke occurred on aspirin 81mg qd so that was changes to Plavix 75mg qd 2. Nasopharyngeal Mass: ENT saw and felt it was non-urgent and could be evaluated in the outpatient setting routinely 3. HTN Plan: - Continue Plavix 75mg qd (Pt had stroke on aspirin) - Blood pressure goal < 140/90 - LDL goal < 70 (LDL 124), pt started on statin - H1AC < 7.0 (H1aC 5.2) - Pt going to rehab today - No further inpatient neurologic w/u needed, recommend outpatient f/u with cardiology for 30 day director semiconductor for occult afib and otpt f/u with neurologist in [place] to establish care 35 min spent with patient, majority of time spent counseling on stroke, rehab, and treatment plan. Objective: Vital Signs Temp Pulse Resp BP Pulse Ox 36.7 C 57 L 16 141/84 H 93 02/23/17 11:53 02/23/17 11:53 02/23/17 11:53 02/23/17 11:53 02/23/17 11:53 02/22/17 02/23/17 02/24/17 05:59 05:59 05:59 Intake Total 965 550 Balance 965 550 Allergies/Adverse Reactions: No Known Allergies Allergy (Verified 02/22/17 03:02)
== END 2017-02-23 14:39 | DRG 65 ==
LOC: F3N 21:15 → OBSVTOIN 02-21 15:00
PROVIDERS: ADMIT Student in an Organized Health Care Education/Training Program; ATTEND Student in an Organized Health Care Education/Training Program
DX: I63.531 Cerebral infarction due to unspecified occlusion or stenosis of right posterior cerebral artery (principal); Q21.1 Atrial septal defect; J34.89 Other specified disorders of nose and nasal sinuses; J33.0 Polyp of nasal cavity; I10 Essential (primary) hypertension; G47.30 Sleep apnea, unspecified; Z79.82 Long term (current) use of aspirin; Z96.653 Presence of artificial knee joint, bilateral
CPT/HCPCS: 92507-GN; 92523-GN; 97112-GP; 97116-GP; 97161-GP; 97165-GO; 97530-GO; 97535-GO; A9585; G0378; G0480; J1650; J2405; Q9967

== ENCOUNTER 2017-02-23 12:33 | Inpatient (IN) | payer OTHER ==
[2017-02-23] MEDS ORDERED: DICLOFENAC SODIUM 75 MG TAB PO PRN (16:55)
[2017-02-23] MEDS ORDERED: oxyCODONE IR 5 MG TAB PO PRN (16:55)
[2017-02-23] MEDS ORDERED: MECLIZINE HCL 25 MG TAB PO PRN (16:55)
[2017-02-23] MEDS ORDERED: ONDANSETRON DISINTEGRATING 4 MG TAB PO PRN (16:56)
[2017-02-23] MEDS: ACETAMINOPHEN 325 MG TAB PO PRN ×2 (16:56→22:56)
--- NOTE | 2017-02-23 17:27 | GHP ---
[f rep st] HISTORY AND PHYSICAL POST ADMISSION PHYSICIAN EVALUATION AND REHABILITATION TREATMENT PLAN DATE OF ADMISSION: 02/23/2017 DATE OF EVALUATION: 02/23/2017. TIME OF EVALUATION: 1545 hours. REFERRING FACILITY: [facility]. REFERRING PHYSICIAN: Naida Tom NP IMPAIRMENT GROUP: 1.4. DATE OF ONSET: 02/20/2017. CONSULTING PHYSICIANS: He was seen in consultation by Neurology, Dr. Stoll; and Cardiology, Dr. Milner; and Ear, Nose and Throat Physician Bow Stapler Melissa Barr. REHABILITATION DIAGNOSIS: Right cerebellar cerebrovascular accident with ataxia. ETIOLOGIC DIAGNOSIS: No paresis. HISTORY OF PRESENT ILLNESS: Mr. Fung is visiting family from [place]. He was admitted to [facility] on 02/20/2017, with a 2-day history of severe dizziness, nausea, vomiting, and poor balance. He also had tingling bilaterally on his face and lower extremities. An MRI of the brain showed a right cerebellar cerebrovascular accident. 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 Further evaluation included a CT angiogram of the head and neck which showed no obstructions. Echocardiogram showed a patent foramen ovale versus atrial septal defect on bubble study. Ejection fraction was 70% to 75%. He had dyslipidemia with high triglycerides and low HDL and was begun on atorvastatin. He was initially allowed permissive hypertension, but then subsequently olmesartan was resumed. Other studies and labs during his stay: Basic metabolic profile was overall within normal limits with only minor abnormalities. Hemoglobin A1c was 5.2. Liver functions were within normal limits. Lipid panel showed triglycerides of 362, cholesterol of 224, LDL of 124, and HDL of 28. Lipase was normal at 235. Hematology showed anemia with a hemoglobin of 12.3 and a hematocrit of 36.3. These improved somewhat. He had a low platelet count of 148. A toxicology screen was done in the serum which was negative for salicylates. EKG showed normal sinus rhythm. PRECAUTIONS: He is a fall risk. ACTIVE COMORBIDITIES: He has no active tier 1, tier 2, or tier 3 comorbidities. PAST MEDICAL HISTORY: Hypertension. PAST SURGICAL HISTORY: He has had an umbilical hernia repair, bilateral rotator cuff surgeries, and bilateral total knee arthroplasties. MEDICATIONS: Prior to admission, he was taking aspirin and olmesartan. He was also taking diclofenac for neck pain. ADMISSION MEDICATIONS: 1. Acetaminophen 650 mg p.o. q.4 hours p.r.n. 2. Atorvastatin 20 mg p.o. daily. 3. Clopidogrel 75 mg p.o. daily. 4. Diclofenac 75 mg p.o. four times daily. 5. Enoxaparin 40 mg subcutaneous daily. 6. Meclizine 25 mg p.o. four times daily p.r.n. 7. Olmesartan 20 mg p.o. daily. 8. Ondansetron 4 mg p.o. four times daily p.r.n. 9. Oxycodone immediate release 5-10 mg p.o. q.4 hours p.r.n. ALLERGIES: There are no known drug allergies. FAMILY HISTORY: Noncontributory. PSYCHOSOCIAL HISTORY: He is . He lives with his . He is visiting family who live in [place]. His son and son's girlfriend are also visiting from [place]. 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 He is a nonsmoker. REVIEW OF SYSTEMS: He reports he is much improved with no further dizziness. He is able to ambulate, but slowly. He has had no nausea or vomiting. He has no diplopia. He has no focal weakness, numbness, or tingling. He complains of neck pain and requests acetaminophen. He reports his sleep has been interrupted. He denies chest pain or palpitations, fevers chills, weight gain, weight loss, cough, dyspnea, constipation or diarrhea, joint pain or joint swelling other than his neck pain, skin rash or skin breakdown, and otherwise a 10-point review of systems is negative. PHYSICAL EXAM: VITAL SIGNS: From this morning in the hospital, his blood pressure was 141/84, his heart rate was 57, his respiratory rate was 16, his oxygen saturation was 93% on room air, temperature was 36.7 degrees centigrade. His weight is 102 kg for a body mass index of 32.3. GENERAL: This is a well- nourished, well-developed, obese man, sitting up in a chair, cooperative, and in no acute distress. HEENT: Extraocular movements are intact, but for possibly a slight decrement to accommodation in the left eye. Mucous membranes are moist. Dentition is in good condition. NECK: Supple. HEART: There is regular rate and rhythm with no murmurs, rubs, or gallops. Heart sounds are somewhat distant. LUNGS: Clear to auscultation bilaterally. ABDOMEN: Soft, nontender, nondistended with normoactive bowel sounds and no hepatosplenomegaly. EXTREMITIES: There is no cyanosis, clubbing, or edema. Radial pulses are 2+ bilaterally. Dorsalis pedis pulses are 1+ bilaterally. There is no calf tenderness. NEUROLOGIC: He is alert and oriented x3. Cranial nerves 2-12 are grossly intact. There is no focal weakness. Sensation is intact to light touch. Deep tendon reflexes are 1+ bilaterally at the biceps , patella, and Achilles tendons. Babinski is downgoing bilaterally. Finger-to- nose testing shows some past pointing bilaterally, but otherwise is brisk and accurate. Heel-to-toe testing is within normal limits. Gait was not tested. CURRENT LEVEL OF FUNCTION: Per the preadmission screen: Regarding diet, feeding and swallowing, he was on a regular diet. Regarding dressing, he required contact guard assist for sitting with set-up. He had diplopia when bending over to don or doff his socks which resolved within 2-3 minutes. Regarding toileting, he needed contact guard assist for transfers and clothing management. Bowel and bladder were continent. Transfers were accomplished with contact guard. Regarding balance, static, he required contact guard assist with a wide base of support. Dynamic required moderate assistance and voice cuing. He had loss of balance with environmental distraction, head turns , perturbations, and reaching to the floor. His Arshad balance score put him at medium fall risk. Endurance was fair. Gait: He walked 200 feet with minimal to moderate assistance with a wide base of support with a measured and focused stepping pattern, especially with turns. He needed moderate assist for horizontal head turns and vertical head nods because he would have loss of balance. Regarding cognition, he was noted to have mild problem solving and reasoning deficits. He was considered a fall risk. IMPRESSION: Mr. James Fung is a 61-year-old man who suffered a right cerebellar cerebrovascular accident most likely initially on February 18. He presented to the hospital on February 20, where imaging demonstrated the stroke. Etiology is unclear. There was either a patent foramen ovale or an atrial septal defect on bubble study with the echocardiogram. There was no source of embolus identified, though he is at some risk having had a recent long plane flight from [place]. He has been placed on clopidogrel and atorvastatin for secondary prevention of stroke. He was previously taking an aspirin. He has had considerable improvement, but will benefit from further treatment in the inpatient rehabilitation unit with physical and occupational therapy to optimize his mobility and activities of daily living, and speech and language pathology for a swallow screen and to work with him on higher level cognitive issues. He will benefit from nursing care regarding fall risk, bowel and bladder, skin integrity, medication administration and education, and neurologic education. He will benefit from the oversight of a physician regarding comorbidities including hypertension and dyslipidemia, and risk for neurologic deterioration. His goal is to complete rehabilitation and return to [place]. For a safe discharge, he will need to be independent with grooming and bed mobility. He will need to achieve modified independence for transfers and ambulation with the least restrictive device. It is expected he will show cognitive improvement and not demonstrate any impairment. He will receive for therapy with physical therapy, occupational therapy, and speech and language pathology for 60 minutes for each day per discipline on 5-7 days per week. His expected duration of stay is 5-7 days. It is anticipated that upon discharge, he will continue to benefit from outpatient therapy including occupational therapy, speech and language pathology , and physical therapy. ASSESSMENT AND PLAN: 1. Cerebellar stroke with ataxia. Physical and occupational therapies to optimize mobility and activities of daily living. 2. Cognitive impairment, to be assessed and treated per speech and language pathology. 3. Secondary stroke prevention with atorvastatin and clopidogrel. When he returns [place], he should have a heart monitor placed to assess for a month for occult atrial fibrillation. 4. Hypertension. Continue olmesartan and monitor blood pressure. Olmesartan can be adjusted or additional medication can be added if necessary. 5. Neck pain has been adequately controlled with acetaminophen and oxycodone, and these will be continued. 6. Meclizine has been ordered out of the hospital, though he has not used it for several days, but it will be available on an as-needed basis should he have symptoms of vertigo and ondansetron will be available for nausea. 7. Deep vein thrombosis prophylaxis. He comes from the hospital on enoxaparin. If his mobility is significantly improved, this can be discontinued before his discharge. /[id number]/MODL MTDD
[2017-02-24] MEDS: ACETAMINOPHEN 325 MG TAB PO PRN (06:25)
[2017-02-24 07:58] LABS: % IMMATURE GRANULYOCYTES 0.2 % (0.0-1.1); ABSOLUTE IMMATURE GRANULOCYTES 0.01 10^3/uL (0.00-0.10); ADD DIFF? NO; ADD MORPH? NO; ADD SCAN? NO; ATYPICAL LYMPHOCYTE FLAG 0 (0-99); FRAGMENT RBC FLAG 0 (0-99); HEMATOCRIT 35.9 % (40.0-51.0); HEMOGLOBIN 12.5 g/dL (13.7-17.5); LEFT SHIFT FLG 0 (0-99); LIPEMIA HEMOLYSIS FLAG 90 (0-99); MEAN CELL HEMOGLOBIN 30.6 pg (27.9-34.1); MEAN CELL HEMOGLOBIN CONCENTR. 34.8 g/dL (32.4-36.7); MEAN CELL VOLUME 87.8 fL (81.5-99.8); MEAN PLATELET VOLUME 11.8 fL (8.7-11.7); PLATELET CLUMPS FLAG 0 (0-99); PLATELET COUNT 145 10^3/uL (150-400); RED BLOOD CELL COUNT 4.09 10^6/uL (4.40-6.38); RED CELL DISTRIBUTION WIDTH 12.9 % (11.5-15.2)
[2017-02-24] MEDS: ENOXAPARIN 40 MG/0.4 ML SYR SC SCH (09:03)
[2017-02-24] MEDS: CLOPIDOGREL BISULFATE 75 MG TAB PO SCH (09:04)
[2017-02-24] MEDS: ATORVASTATIN CALCIUM 20 MG TAB PO SCH (09:04)
[2017-02-24] MEDS: OLMESARTAN MEDOXOMIL 20 MG TAB PO SCH (09:05)
--- NOTE | 2017-02-24 16:13 | SOAPPROG ---
SOAP Progress Note Assessment/Plan: 61yo M s/p right cerebellar infarct ~02/18 1. Right cerebellar infarct with ataxia, CN dysfunction- probable embolic with minimal atherosclerotic disease but +PFO vs ASD but normal EKG -HEALTH CARE CONSULTANT/OT/PT/RN with physiatric supervision -Vertigo/nausea: Meclizine and/or zofran prn, hasnt required any -Prophy: cont. atorva and clopidogrel, will need holter monitor on return to [place] 2. HTN - cont. olmesartan 3. Neck pain - cont. APAP and oxy prn 4. Prophy: cont. LMWH for now, no GI indicated FULL CODE Dispo: Back to home in [place], will need to be Independent-Evelyn for all functional tasks but not too far from this, ELOS 7 days. Subjective: No events. No complaints this a.m. Only intermittent vertigo and diplopia, no nausea/emesis. Objective: Vital Signs Temp Pulse Resp BP Pulse Ox 36.5 C 59 L 16 133/80 H 96 02/24/17 07:36 02/24/17 07:36 02/24/17 07:36 02/24/17 09:05 02/24/17 07:36 Laboratory Results 02/24/17 06:10 02/23/17 02/24/17 02/25/17 05:59 05:59 05:59 Intake Total 440 600 Output Total 800 500 Balance -360 100 - Pending Discharge Pending Discharge Within 24 Hours: No Pending Discharge Within 48 Hours: No Physical Exam - Physical Exam General Appearance: alert, no apparent distress Neck: supple Respiratory: lungs clear, normal breath sounds Cardiac/Chest: regular rate, rhythm Abdomen: non-tender, soft Skin: normal color, warm/dry Neuro/Psych: alert, normal mood/affect, oriented x 3, No motor weakness, No sensory deficit, No speech abnormalities ICD10 Worksheet Patient Problems: Problems Problem Status Onset Ataxia Acute Cerebrovascular accident (CVA) involving cerebellum Acute Dizziness Acute
[2017-02-25] MEDS: ENOXAPARIN 40 MG/0.4 ML SYR SC SCH (08:08)
[2017-02-25] MEDS: ATORVASTATIN CALCIUM 20 MG TAB PO SCH (08:08)
[2017-02-25] MEDS: CLOPIDOGREL BISULFATE 75 MG TAB PO SCH (08:08)
[2017-02-25] MEDS: OLMESARTAN MEDOXOMIL 20 MG TAB PO SCH (08:08)
--- NOTE | 2017-02-25 14:38 | SOAPPROG ---
SOAP Progress Note Assessment/Plan: 61yo M s/p right cerebellar infarct ~02/18 1. Right cerebellar infarct with ataxia, CN dysfunction- probable embolic with minimal atherosclerotic disease but +PFO vs ASD but normal EKG -AWNING INSTALLER/OT/PT/RN with physiatric supervision -Vertigo/nausea: Meclizine and/or zofran prn, hasn't required any -Prophy: cont. atorva and clopidogrel, will need holter monitor on return to [place] 2. HTN - cont. olmesartan 3. Neck pain - cont. APAP and oxy prn 4. Prophy: cont. LMWH for now, no GI indicated FULL CODE Dispo: Back to home in [place], will need to be Independent-Evelyn for all functional tasks but not too far from this, ELOS 7 days. Subjective: No events. No complaints today, no ongoing diplopia or vertigo. Objective: Vital Signs Temp Pulse Resp BP Pulse Ox 36.4 C 72 18 135/83 H 94 02/25/17 07:11 02/25/17 07:11 02/25/17 07:11 02/25/17 08:08 02/25/17 07:11 Laboratory Results 02/24/17 06:10 02/24/17 02/25/17 02/26/17 05:59 05:59 05:59 Intake Total 440 1000 150 Output Total 800 500 Balance -360 500 150 - Pending Discharge Pending Discharge Within 24 Hours: Yes Pending Discharge Within 48 Hours: Yes Pending Discharge Date: 02/26/17 Pending Discharge Time: 11:00 Physical Exam - Physical Exam General Appearance: alert, no apparent distress Neck: supple Respiratory: lungs clear, normal breath sounds Cardiac/Chest: regular rate, rhythm Abdomen: non-tender, soft Skin: normal color, warm/dry Neuro/Psych: alert, normal mood/affect, oriented x 3, other (No ataxia on FNF), No motor weakness, No sensory deficit, No cognition abnormalities, No speech abnormalities ICD10 Worksheet Patient Problems: Problems Problem Status Onset Ataxia Acute Cerebrovascular accident (CVA) involving cerebellum Acute Dizziness Acute
[2017-02-26 08:00] VITALS: BP 126/72; PULSE 84; RESP 16; TEMP 98.4; O2SAT 92
[2017-02-26] MEDS: ATORVASTATIN CALCIUM 20 MG TAB PO SCH (08:03)
[2017-02-26] MEDS: CLOPIDOGREL BISULFATE 75 MG TAB PO SCH (08:03)
[2017-02-26] MEDS: OLMESARTAN MEDOXOMIL 20 MG TAB PO SCH (08:03)
--- NOTE | 2017-02-26 09:47 | PDOREHIP ---
[facility]mission [facility] - Admission - 3 Day Assessment Period Admission Date/Day 1: 02/23/17 Day 2: 02/24/17 Day 3: 02/25/17 - Active Diagnoses Comorbidities and Co-existing Conditions at Admission: 06288. None of the Above - Skin Conditions Unhealed Pressure Ulcer (1 or more/Stage 1 or >)-Admission: 0. No
--- NOTE | 2017-02-26 13:48 | SOAPPROG ---
SOAP Progress Note Assessment/Plan: Assessment: 1. Cerebellar stroke with ataxia. Initial FIM 117 on 02/26/17. Has had rapid recovery. Independent on the unit and with ADLs. Has decreased endurance. Has intermittent diplopia.. Discharge today. Physical and occupational therapies to optimize mobility and activities of daily living. 2. Cognitive impairment, with decreased speed of processing and reaction time. Should not drive. Treatment per speech and language pathology. 3. Secondary stroke prevention with atorvastatin and clopidogrel. When he returns [place], he should have a heart monitor placed to assess for a month for occult atrial fibrillation. 4. Hypertension. Continue olmesartan and monitor blood pressure. Olmesartan can be adjusted or additional medication can be added if necessary. 5. Neck pain has been adequately controlled with acetaminophen and oxycodone, and these will be continued. 6. Meclizine has been ordered out of the hospital, though he has not used it for several days, but it will be available on an as-needed basis should he have symptoms of vertigo and ondansetron will be available for nausea. 7. Deep vein thrombosis prophylaxis. He comes from the hospital on enoxaparin. Mobility is significantly improved, will discontinued before his discharge. Attended staffing, 15 min. D/W case mgmt, nursing, PT, OT, ADVOCACY DIRECTOR. Discharge to [facility]. Follow-up with primary care, Cardiology and Neuro-ophthalmology upon returning to [place]. 02/26/17 13:58 Objective: Vital Signs Temp Pulse Resp BP Pulse Ox 36.9 C 84 16 126/72 H 92 02/26/17 07:59 02/26/17 07:59 02/26/17 07:59 02/26/17 08:03 02/26/17 07:59 Laboratory Results 02/24/17 06:10 02/25/17 02/26/17 02/27/17 05:59 05:59 05:59 Intake Total 1000 650 830 Output Total 500 Balance 500 650 830 - Time Spent With Patient Time Spent With Patient: Greater than 35 minutes floor time today, including more than 50% of time in coordination of care during staffing meeting, and counseling patient. Physical Exam - Physical Exam General Appearance: WD/WN, alert, no apparent distress, obese Respiratory: No respiratory distress, No accessory muscle use Skin: normal color, warm/dry Neuro/Psych: no motor/sensory deficits, alert, normal mood/affect, oriented x 3 ICD10 Worksheet Patient Problems: Problems Problem Status Onset Ataxia Acute Cerebrovascular accident (CVA) involving cerebellum Acute Dizziness Acute
--- NOTE | 2017-02-26 18:34 | GDS ---
[f rep st] DISCHARGE SUMMARY ADMISSION DIAGNOSIS: Cerebellar cerebrovascular accident. DISCHARGE DIAGNOSIS: Cerebellar cerebrovascular accident. CONSULTATIONS: None. PROCEDURES: None. COMPLICATIONS: None. HISTORY AND HOSPITAL COURSE: This patient came to inpatient rehabilitation from [facility] where he had been admitted on 02/20/2017, with nausea or vomiting and severe dizziness and poor balance. He was diagnosed with a cerebellar cerebrovascular accident. 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 Evaluation for etiology of the stroke included an angiography of the head and neck, which showed no obstructions. Echocardiogram showed a patent cuevas ovale versus atrial septal defect on a bubble study. He had dyslipidemia with high triglycerides and low HDL. He was started on atorvastatin and clopidogrel. Other laboratories and studies in the hospital included a hemoglobin A1c of 5.2 , normal liver functions, elevated triglycerides of 362, and dyslipidemia with a total cholesterol of 224, LDL of 124, and HDL of 28. He had anemia with a hemoglobin of 12.3, hematocrit of 36.3, and a low platelet count at 148. EKG showed normal sinus rhythm. Nasal endoscopy reveals a benign polyp. He had rapid improvement in rehabilitation. His functional independence measure on 02/26/2017 was 117, which is consistent with independent living. He was independent on the unit and with activities of daily living. He had decreased endurance, intermittent diplopia and cognitively had decreased speed of processing and reaction time. His blood pressure was well controlled with olmesartan. PHYSICAL EXAMINATION: VITAL SIGNS: On discharge, blood pressure was 126/72, heart rate was 84, respiratory rate was 16, and oxygen saturation was 92% on room air. Temperature was 36.9 degrees centigrade. GENERAL: This is a well- nourished, well-developed, obese man standing and moving about the room; cooperative and in no acute distress. HEART: There is regular rate and rhythm with no murmurs, rubs, or gallops. LUNGS: Clear to auscultation bilaterally. EXTREMITIES: There is no edema. NEUROLOGIC: He is alert and oriented x3. He appears to have a normal gait. There is no focal weakness and sensation is intact to light touch. DISCHARGE PLAN: Condition upon discharge is good. ACTIVITY: Ad ulises, but no driving until cleared by Neuro-Ophthalmology. DIET: Regular. DATE OF NEXT APPOINTMENT: He has followup scheduled with Cardiology, primary care, and Neuro-Ophthalmology. MEDICATIONS AT DISCHARGE: 1. Meclizine 25 mg p.o. 4 times daily p.r.n. vertigo. 2. Acetaminophen 650 mg p.o. q.4 hours p.r.n. 3. Atorvastatin 20 mg p.o. daily. 4. Clopidogrel 75 mg p.o. daily. 5. Diclofenac, continued from prior hospitalization 75 mg p.o. 4 times daily p.r.n. neck pain. 6. Olmesartan 20 mg p.o. daily. ISSUES TO BE ADDRESSED AT FOLLOWUP: 1. Cryptogenic etiology of stroke. He has an appointment with Cardiology for placement of a monitor to rule out occult atrial fibrillation. 2. Diplopia along with difficulty reading. He has an appointment scheduled with Neuro-Ophthalmology for further evaluation and treatment, and if his vision returns to normal, as well as his reaction time he should be good to drive. 3. Reduced speed of processing and reaction time, as cognitive affects of cerebellar stroke. He has follow up with outpatient speech and language pathology. 4. Dyslipidemia and hypertension. He has followup scheduled with primary care, and he should have a repeat lipid panel to ensure that he has adequate treatment of his dyslipidemia. Copy requested to: Dr. Mauricio Rosas [place], [place] Dr. Julio Wilson [place], [place] Dr. Erlin Smith [place], [place] Greater than 35 minutes spent on this discharge including medication reconciliation, coordination of care and counseling patient. /[id number]/MODL MTDD
== END 2017-02-26 02:00 | disposition home or self-care (01) | DRG 57 ==
LOC: BREH 15:45
PROVIDERS: ADMIT Internal Medicine; ATTEND Internal Medicine
PROC: F08Z1FZ Dressing Techniques Treatment using Assistive, Adaptive, Supportive or Protective Equipment (ICD-10-PCS; principal; 2017-02-23)
PROC: F08Z2FZ Grooming/Personal Hygiene Treatment using Assistive, Adaptive, Supportive or Protective Equipment (ICD-10-PCS; principal; 2017-02-23)
PROC: F07Z8FZ Transfer Training Treatment using Assistive, Adaptive, Supportive or Protective Equipment (ICD-10-PCS; principal; 2017-02-23)
DX: I69.393 Ataxia following cerebral infarction (principal); I69.319 Unspecified symptoms and signs involving cognitive functions following cerebral infarction; E78.5 Hyperlipidemia, unspecified; J33.0 Polyp of nasal cavity; D64.9 Anemia, unspecified; I10 Essential (primary) hypertension; M54.2 Cervicalgia; Q21.9 Congenital malformation of cardiac septum, unspecified; H53.2 Diplopia; I25.10 Atherosclerotic heart disease of native coronary artery without angina pectoris
CPT/HCPCS: 92507-GN; 92522-GN; 97110-GP; 97116-GP; 97161-GP; 97165-GO; 97530-GP; 97532-GO; 97535-GO; J1650